=== PATIENT | male | born 1955 | race Caucasian/White ===

== ENCOUNTER 2017-03-28 14:29 | Emergency (ER) | payer OTHER ==
[2017-03-28] MEDS ORDERED: PROMETHAZINE HCL 25 MG TABLET PO ONE (16:22)
[2017-03-28] MEDS ORDERED: OXYCODONE-ACETAMINOPHEN 5-325 MG TABLET PO ONE (16:22)
--- NOTE | 2017-03-28 16:30 | ER Document Report ---
ED Medical Screen (RME) - General Chief Complaint: Abdominal Pain Stated Complaint: ABDOMINAL PAIN Time Seen by Provider: 03/28/17 16:22 Notes: Patient is complaining of pain in the mid epigastric region of his abdomen that and about 5 AM. It was very severe, although it is easing off some now. He feels as if someone had punched him in his abdomen about 40 times. Did not have any vomiting nor diarrhea. Has had decreased bowel movement over the past 24 hours. No fevers. History of a couple of kidney stones in the past. Abdomen is somewhat distended, large, decreased bowel sounds present. No bruits heard. TRAVEL OUTSIDE OF THE [place] IN LAST 30 DAYS: No - Related Data Allergies/Adverse Reactions: No Known Allergies Allergy (Verified 03/28/17 14:43) Past Medical History Renal/ Medical History: Denies: Hx Peritoneal Dialysis Physical Exam - Vital signs Vitals: Temp Pulse Resp BP Pulse Ox 97.8 F 76 22 H 181/85 H 97 03/28/17 14:43 03/28/17 14:43 03/28/17 14:43 03/28/17 14:43 03/28/17 14:43 Course - Vital Signs Vital signs: Temp Pulse Resp BP Pulse Ox 97.8 F 76 22 H 181/85 H 97 03/28/17 14:43 03/28/17 14:43 03/28/17 14:43 03/28/17 14:43 03/28/17 14:43
[2017-03-28 16:50] LABS: ABSOLUTE BASOPHILS # (AUTO) 0.1 10^3/uL (0.0-0.2); ABSOLUTE EOSINOPHILS # (AUTO) 0.3 10^3/uL (0.0-0.6); ABSOLUTE LYMPHOCYTES (AUTO) 1.6 10^3/uL (0.5-4.7); ABSOLUTE MONOCYTES (AUTO) 0.5 10^3/uL (0.1-1.4); ABSOLUTE NEUT (AUTO) 8.4 10^3/uL (1.7-8.2); BASOPHILS % (AUTO) 0.7 % (0-2); EOSINOPHILS % (AUTO) 2.4 % (0-6); HEMATOCRIT 41.8 % (37.9-51.0); HEMOGLOBIN 14.1 g/dL (13.5-17.0); HGB HCT DIFFERENCE 0.5; LYMPHOCYTES % (AUTO) 14.6 % (13-45); MEAN CORPUSCULAR HEMOGLOBIN 29.8 pg (27.0-33.4); MEAN CORPUSCULAR HGB CONC 33.9 g/dL (32.0-36.0); MEAN CORPUSCULAR VOLUME 88 fl (80-97); MONOCYTES % (AUTO) 4.8 % (3-13); RED BLOOD COUNT 4.75 10^6/uL (4.35-5.55); RED CELL DISTRIBUTION WIDTH 13.7 % (11.5-14.0); SEGMENTED NEUTROPHILS % (AUTO) 77.5 % (42-78); WHITE BLOOD COUNT 10.8 10^3/uL (4.0-10.5)
[2017-03-28 17:02] LABS: APPEARANCE,URINE CLEAR; BILIRUBIN,URINE NEGATIVE (NEGATIVE); GLUCOSE, URINE NEGATIVE (NEGATIVE); KETONES,URINE NEGATIVE (NEGATIVE); LEUKOCYTE ESTERASE,URINE NEGATIVE (NEGATIVE); NITRITE,URINE NEGATIVE (NEGATIVE); PROTEIN,URINE 30 mg/dL (NEGATIVE); URINE SPECIFIC GRAVITY 1.019; UROBILINOGEN,URINE NEGATIVE mg/dL (<2.0)
[2017-03-28 17:20] LABS: ALANINE AMINOTRANSFERASE 53 U/L (21-72); ALBUMIN 4.6 g/dL (3.5-5.0); ALKALINE PHOSPHATASE 90 U/L (38-126); ANION GAP 17 (5-19); ASPARTATE AMINO TRANSFERASE 32 U/L (17-59); BILIRUBIN,DIRECT 0.3 mg/dL (0.0-0.4); BILIRUBIN,TOTAL 0.6 mg/dL (0.2-1.3); BLOOD UREA NITROGEN 26 mg/dL (7-20); CALCIUM 10.5 mg/dL (8.4-10.2); CARBON DIOXIDE 25 mmol/L (22-30); CHLORIDE 104 mmol/L (98-107); GLUCOSE 204 mg/dL (75-110); LIPASE 920.7 U/L (23-300); POTASSIUM 5.2 mmol/L (3.6-5.0); SODIUM 146.2 mmol/L (137-145); TOTAL PROTEIN 8.3 g/dL (6.3-8.2)
--- NOTE | 2017-03-28 17:41 | RADIOLOGY REPORT (SQ) ---
EXAM DESCRIPTION: CT ABD/PELVIS NO ORAL OR IV COMPLETED DATE/TIME: 03/28/2017 5:15 pm REASON FOR STUDY: Mid epigastric abdominal pain COMPARISON: None. TECHNIQUE: CT scan of the abdomen and pelvis performed without intravenous or oral contrast. Images reviewed with lung, soft tissue, and bone windows. Reconstructed coronal and sagittal MPR images revi ewed. All images stored on PACS. All CT scanners at this facility use dose modulation, iterative reconstruction, and/or weight based d osing when appropriate to reduce radiation dose to as low as reasonably achievable (ALARA). [facility]: Dose Right [facility]: CareDose [facility]: Dose Right [facility]: Teradose 4D [facility]: [employer] [place] RADIATION DOSE: 19.09mGy. LIMITATIONS: None. FINDINGS: LOWER CHEST: No significant findings. No nodules or infiltrates. NON-CONTRASTED LIVER, SPLEEN, ADRENALS: The liver is low in density. The spleen and adrenal glands a re normal. PANCREAS: There is stranding around the 1st and 2nd portions of the duodenum and the head of the panc reas. GALLBLADDER: No identified stones by CT criteria. No inflammatory changes to suggest cholecystitis. RIGHT KIDNEY AND URETER: No suspicious masses. Assessment limited by lack of IV contrast. No signif icant calcifications. No hydronephrosis or hydroureter. LEFT KIDNEY AND URETER: No suspicious masses. Assessment limited by lack of IV contrast. No signifi cant calcifications. No hydronephrosis or hydroureter. AORTA AND RETROPERITONEUM: No aneurysm. No retroperitoneal masses or adenopathy. BOWEL AND PERITONEAL CAVITY: There is stranding in the fat around the 1st and 2nd portions of the duo denum and the head of the pancreas. APPENDIX: Not identified. PELVIS, BLADDER, AND ABDOMINAL WALL:No abnormal masses. No free fluid. Bladder normal. BONES: No significant findings. OTHER: No other significant finding. IMPRESSION: There is stranding around the 1st and 2nd portions of the duodenum and the head of the p ancreas. No free air is seen in the abdomen. Perforated duodenal ulcer versus pancreatitis. TECHNICAL DOCUMENTATION: JOB ID: [id number] Quality ID # [id number]: Final reports with documentation of one or more dose reduction techniques (e.g., Au tomated exposure control, adjustment of the mA and/or kV according to patient size, use of iterative reconstruction technique) 2010 [employer]- All Rights Reserved
[2017-03-28] MEDS ORDERED: HYDROCODONE/ACETAMINOPHEN 5-325 MG 6 TAB/DSPK PO PRN (17:59)
--- NOTE | 2017-03-28 17:59 | ER Document Report ---
ED GI/ - General Chief Complaint: Abdominal Pain Stated Complaint: ABDOMINAL PAIN Time Seen by Provider: 03/28/17 16:22 Mode of Arrival: Ambulatory Information source: Patient Notes: Pt is a 61 year old male who presents to the ER today for upper abdominal pain that woke him up from sleep this morning at 5am. He denies nausea/vomiting/ diarrhea, fever, chills. He states he's been a little constipated lately, but his last bowel was this morning. He states the pain feels like someone "kicked me 40 times." He denies any history of gallbladder disease, pancreatitis, bowel obstruction, abdominal surgery. TRAVEL OUTSIDE OF THE [place] IN LAST 30 DAYS: No - Related Data Allergies/Adverse Reactions: No Known Allergies Allergy (Verified 03/28/17 14:43) Past Medical History - General Information source: Patient - Social History Smoking Status: Former Smoker Chew tobacco use (# tins/day): No Frequency of alcohol use: None Drug Abuse: None Family History: Reviewed & Not Pertinent Patient has suicidal ideation: No Patient has homicidal ideation: No Renal/ Medical History: Denies: Hx Peritoneal Dialysis - Immunizations Hx Diphtheria, Pertussis, Tetanus Vaccination: Yes Review of Systems - Review of Systems Constitutional: No symptoms reported EENT: No symptoms reported Cardiovascular: No symptoms reported Respiratory: No symptoms reported Gastrointestinal: See HPI Genitourinary: No symptoms reported Male Genitourinary: No symptoms reported Musculoskeletal: No symptoms reported Skin: No symptoms reported Hematologic/Lymphatic: No symptoms reported Neurological/Psychological: No symptoms reported Physical Exam - Vital signs Vitals: Temp Pulse Resp BP Pulse Ox 97.8 F 76 22 H 181/85 H 97 03/28/17 14:43 03/28/17 14:43 03/28/17 14:43 03/28/17 14:43 03/28/17 14:43 - Notes Notes: Patient has PHYSICAL EXAMINATION: GENERAL: Well-appearing, obese, and in no acute distress. HEAD: Atraumatic, normocephalic. EYES: Pupils equal round and reactive to light, extraocular movements intact, sclera anicteric, conjunctiva are normal. NECK: Normal range of motion, supple without lymphadenopathy LUNGS: CTAB and equal. No wheezes rales or rhonchi. HEART: Regular rate and rhythm without murmurs ABDOMEN: Soft, no tenderness. No guarding, no rebound BACK: no vertebral tenderness, normal ROM GI/: no CVA tenderness EXTREMITIES: Normal range of motion, no pitting edema. No cyanosis. NEUROLOGICAL: Cranial nerves grossly intact. Normal sensory/motor exams. PSYCH: Normal mood, normal affect. SKIN: Warm, Dry, normal turgor, no rashes or lesions noted Course - Re-evaluation Re-evalutation: 03/28/17 18:26 Patient had a lipase of 960, CAT scan revealed someStranding around the head of the pancreas, patient has absolutely no or tenderness to exam even with deep palpation, absolutely no nausea or vomiting. He is happy, smiling and very talkative in the room. Patient is stable to be discharged on a clear liquid diet, I did educate him about pancreatitis and the link between alcohol and pancreatitis, the treatment for pancreatitis as clear liquids, pain medication and nausea medication. I did educate him on return precautions. - Vital Signs Vital signs: Temp Pulse Resp BP Pulse Ox 97.8 F 84 18 135/79 H 98 03/28/17 14:43 03/28/17 18:21 03/28/17 18:21 03/28/17 18:21 03/28/17 18:21 - Laboratory Result Diagrams: 03/28/17 16:40 03/28/17 16:40 Laboratory results interpreted by me: 03/28/17 03/28/17 03/28/17 16:40 16:40 16:44 WBC 10.8 H Absolute Neutrophils 8.4 H Sodium 146.2 H Potassium 5.2 H BUN 26 H Glucose 204 H Calcium 10.5 H Total Protein 8.3 H Lipase 920.7 H Urine Protein 30 H Discharge - Discharge Clinical Impression: Pancreatitis Qualifiers: Chronicity: acute Pancreatitis type: unspecified pancreatitis type Acute pancreatitis complication: unspecified Qualified Code(s): K85.90 - Acute pancreatitis without necrosis or infection, unspecified Condition: Stable Disposition: HOME, SELF-CARE Instructions: Pancreatitis ([facility]) Additional Instructions: Drink plenty of fluids! Return immediately for any new or worsening symptoms. Follow up with primary care provider, call tomorrow to make followup appointment. Prescriptions: Hydrocodone/Acetaminophen [[place] 5-325 mg Tablet] 1 - 2 tab PO Q4 PRN #25 tablet PRN Reason: Promethazine HCl [Phenergan 25 mg Tablet] 25 mg PO Q8 PRN #30 tablet PRN Reason:
[2017-03-28 18:22] VITALS: BP 135/79
== END 2017-03-28 18:21 | disposition home or self-care (01) ==
LOC: ER 14:29
DX: K85.90 Acute pancreatitis without necrosis or infection, unspecified (principal); R10.9 Unspecified abdominal pain; Z87.891 Personal history of nicotine dependence
CPT/HCPCS: 36415; 74176; 80053; 81001; 83690; 85025; 99284

== ENCOUNTER 2019-07-06 07:53 | Day surgery (SDC) | payer OTHER ==
[~2019-07-06 07:53] MED LIST: PROPOFOL INJ 200 MG/20 ML VIAL IV ONE
[2019-07-06] MEDS ORDERED: PROPOFOL INJ 200 MG/20 ML VIAL IV ONE (09:23)
[2019-07-06 09:24] VITALS: BP 137/72
--- NOTE | 2019-07-06 13:17 | Operative Report ---
Operative Report DATE OF SURGERY: 07/06/19 Operative Report: The risks, benefits and alternatives of the procedure including the risk of bleeding, perforation requiring surgery have been explained to the patient in detail and informed consent has been obtained. Patient is taken back to the endoscopy suite and placed in a left, lateral decubital position. Timeout was called. Propofol medication is administered. Rectal examination is done which did not reveal any masses, tears or fissures. An Olympus videoscope was introduced into the patient's rectum. The scope was then carefully advanced all the way to the cecum. The cecum was identified by the usual anatomical landmarks of the ileocecal valve as well as the appendiceal office. Photodocumentation is obtained. The scope was then sequentially pulled back via the various segments of the colon including the ascending colon, hepatic flexure, transverse colon, splenic flexure, descending colon finding to the rectosigmoid portions of the colon. Retroflexion maneuvers performed. PREOPERATIVE DIAGNOSIS: Personal history of polyps POSTOPERATIVE DIAGNOSIS: Cecal polyp removed via biopsy forceps. Descending colon removed via snare polypectomy and retrieved. Internal hemorrhoids OPERATION: Colonoscopy with snare polypectomy. Colonoscopy with biopsy SURGEON: SILKE SOTOMAYOR ANESTHESIA: LMAC TISSUE REMOVED OR ALTERED: As noted above. COMPLICATIONS: None. ESTIMATED BLOOD LOSS: None. INTRAOPERATIVE FINDINGS: As noted above. PROCEDURE: Patient tolerated the procedure well. No immediate postprocedure complications are noted. Patient is discharged in good condition. Discharge date 07/06/2019. Discharge diet: Regular. Discharge activity: Regular. 2 to 3-week follow-up to discuss findings. Patient is instructed to call the office or proceed to the emergency room should there be any further problems or questions. Wait on the pathology. 3 to 5-year surveillance colonoscopy.
== END 2019-07-06 09:30 | disposition home or self-care (01) ==
LOC: END 07:53
PROVIDERS: ATTEND Internal Medicine Gastroenterology
DX: Z12.11 Encounter for screening for malignant neoplasm of colon (principal); Z86.010 Personal history of colon polyps; K52.9 Noninfective gastroenteritis and colitis, unspecified; D12.4 Benign neoplasm of descending colon; D12.0 Benign neoplasm of cecum; K64.8 Other hemorrhoids; I10 Essential (primary) hypertension; E66.9 Obesity, unspecified
CPT/HCPCS: 45380; 45385; 82962; 88305 ×2; 00811; J2704; 811

== ENCOUNTER 2019-08-31 11:26 | Observation (INO) | payer OTHER ==
[2019-08-31] MEDS ORDERED: NITROGLYCERIN 0.4 MG/TAB 25 TAB/BOTTLE SL ONE (12:16)
[2019-08-31] MEDS ORDERED: ASPIRIN 81 MG TABLET, CHEWABLE PO ONE (12:16)
--- NOTE | 2019-08-31 12:16 | ER Document Report ---
ED Medical Screen (RME) - General Chief Complaint: Chest Pain Stated Complaint: CHEST PAIN Time Seen by Provider: 08/31/19 12:13 Mode of Arrival: Wheelchair Information source: Patient Notes: 63-year-old male presented to ED for complaint of pain that started as a twinge in his left arm then neck and now it feels like a elephant sitting on his chest. He states this started this morning. States he is a diabetic is on cholesterol medicine. She denies smoking drinking or use of any drugs. He states he is never had any cardiac history. He had a colonoscopy about a month ago for polyps I have greeted and performed a rapid initial assessment of this patient. A comprehensive ED assessment and evaluation of the patient, analysis of test results and completion of medical decision making process will be conducted by an additional ED providers. TRAVEL OUTSIDE OF THE [place] IN LAST 30 DAYS: No - Related Data Allergies/Adverse Reactions: No Known Allergies Allergy (Verified 08/31/19 12:13) Past Medical History - Past Medical History Cardiac Medical History: Reports: Hx Hypertension Denies: Hx Coronary Artery Disease, Hx Heart Attack Pulmonary Medical History: Denies: Hx Asthma, Hx Bronchitis, Hx COPD, Hx Pneumonia Neurological Medical History: Denies: Hx Cerebrovascular Accident, Hx Seizures Renal/ Medical History: Denies: Hx Peritoneal Dialysis Musculoskeltal Medical History: Reports Hx Arthritis - Immunizations Hx Diphtheria, Pertussis, Tetanus Vaccination: Yes Physical Exam - Vital signs Vitals: Temp Pulse Resp BP Pulse Ox 97.8 F 100 19 194/99 H 100 08/31/19 11:37 08/31/19 11:37 08/31/19 11:37 08/31/19 11:37 08/31/19 11:37 Course - Vital Signs Vital signs: Temp Pulse Resp BP Pulse Ox 97.8 F 100 19 194/99 H 100 08/31/19 11:37 08/31/19 11:37 08/31/19 11:37 08/31/19 11:37 08/31/19 11:37
[2019-08-31] MEDS ORDERED: NITROGLYCERIN 0.4 MG/TAB 25 TAB/BOTTLE ONE (12:17)
[2019-08-31] MEDS ORDERED: ASPIRIN 81 MG TABLET, CHEWABLE ONE (12:18)
[2019-08-31 13:12] LABS: ABSOLUTE BASOPHILS # (AUTO) 0.1 10^3/uL (0.0-0.2); ABSOLUTE EOSINOPHILS # (AUTO) 0.7 10^3/uL (0.0-0.6); ABSOLUTE LYMPHOCYTES (AUTO) 1.5 10^3/uL (0.5-4.7); ABSOLUTE MONOCYTES (AUTO) 0.5 10^3/uL (0.1-1.4); ABSOLUTE NEUT (AUTO) 6.1 10^3/uL (1.7-8.2); BASOPHILS % (AUTO) 0.7 % (0-2); HEMATOCRIT 40.4 % (37.9-51.0); HEMOGLOBIN 13.7 g/dL (13.5-17.0); LYMPHOCYTES % (AUTO) 16.5 % (13-45); MEAN CORPUSCULAR HEMOGLOBIN 29.1 pg (27.0-33.4); MEAN CORPUSCULAR HGB CONC 33.9 g/dL (32.0-36.0); MEAN CORPUSCULAR VOLUME 86 fl (80-97); MONOCYTES % (AUTO) 6.1 % (3-13); PLATELET COUNT 216 10^3/uL (150-450); RED BLOOD COUNT 4.71 10^6/uL (4.35-5.55); RED CELL DISTRIBUTION WIDTH 13.4 % (11.5-14.0); SEGMENTED NEUTROPHILS % (AUTO) 68.7 % (42-78); TOTAL CELLS COUNTED % (AUTO) 100 %; WHITE BLOOD COUNT 8.9 10^3/uL (4.0-10.5)
[2019-08-31 13:14] LABS: INTERNATIONAL RATION (INR) 0.91; PROTHROMBIN TIME 12.2 SEC (11.4-15.4)
[2019-08-31 13:15] LABS: PARTIAL THROMBOPLASTIN TIME 24.4 SEC (23.5-35.8)
[2019-08-31 13:27] LABS: ALBUMIN 4.1 g/dL (3.5-5.0); ALKALINE PHOSPHATASE 133 U/L (38-126); ANION GAP 10 (5-19); ASPARTATE AMINO TRANSFERASE 48 U/L (17-59); BILIRUBIN,DIRECT 0.1 mg/dL (0.0-0.4); BILIRUBIN,TOTAL 0.6 mg/dL (0.2-1.3); BLOOD UREA NITROGEN 21 mg/dL (7-20); CALCIUM 9.3 mg/dL (8.4-10.2); CARBON DIOXIDE 25 mmol/L (22-30); CHLORIDE 100 mmol/L (98-107); CREATINE KINASE 171 U/L (55-170); POTASSIUM 4.7 mmol/L (3.6-5.0)
--- NOTE | 2019-08-31 13:28 | ER Document Report ---
ED Cardiac - General Chief Complaint: Chest Pain Stated Complaint: CHEST PAIN Time Seen by Provider: 08/31/19 12:13 Mode of Arrival: Ambulatory Information source: Patient TRAVEL OUTSIDE OF THE [place] IN LAST 30 DAYS: No - HPI Patient complains to provider of: Chest pain Was the onset of pain: Gradual Chest pain location: Substernal Quality of pain: None Notes: Patient states that this morning he developed a pain in his left shoulder which then spread to his neck and upper left back as well as to his chest. He states it was mainly a pressure sensation. It was moderate to severe in intensity. It did wax and wane. Nothing made it better or worse except that when he got here he received nitroglycerin and 4 aspirin and he thinks this may have made it slightly better. He states that now over time it is gradually gone down to where the pain is minor and he just has some "soreness". In his back and shoulder. He denies any known injuries to this area. He has had no upper respiratory symptoms. He states he has had pleurisy in the past and this felt similar but today's pain was more intense. He states he never had any cardiac problems such as heart attacks or heart failure. He states he has a primary doctor at the [facility]. He states his last stress test was 10 years ago. He states that he has some shortness of breath with this pain but this is now better. He denies any nausea or sweating with the pain. The pain radiated from the shoulder to his left chest. - Related Data Allergies/Adverse Reactions: No Known Allergies Allergy (Verified 08/31/19 12:13) Home Medications: CHOLESTEROL. DM Past Medical History - General Information source: Patient - Social History Smoking Status: Former Smoker Chew tobacco use (# tins/day): No Frequency of alcohol use: None Drug Abuse: None Family History: Reviewed & Not Pertinent Patient has suicidal ideation: No Patient has homicidal ideation: No - Past Medical History Cardiac Medical History: Reports: Hx Hypertension Denies: Hx Coronary Artery Disease, Hx Heart Attack Pulmonary Medical History: Denies: Hx Asthma, Hx Bronchitis, Hx COPD, Hx Pneumonia Neurological Medical History: Denies: Hx Cerebrovascular Accident, Hx Seizures Renal/ Medical History: Denies: Hx Peritoneal Dialysis Musculoskeletal Medical History: Reports Hx Arthritis - Immunizations Hx Diphtheria, Pertussis, Tetanus Vaccination: Yes Review of Systems - Review of Systems Constitutional: denies: Chills, Fever Cardiovascular: Chest pain. denies: Palpitations Respiratory: Short of breath. denies: Cough Gastrointestinal: denies: Diarrhea, Vomiting -: Yes All other systems reviewed and negative Physical Exam - Vital signs Vitals: Temp Pulse Resp BP Pulse Ox 97.8 F 100 19 194/99 H 100 08/31/19 11:37 08/31/19 11:37 08/31/19 11:37 08/31/19 11:37 08/31/19 11:37 Interpretation: Hypertensive - General General appearance: Appears well, Alert In distress: None - HEENT Head: Normocephalic, Atraumatic Eyes: Normal Pupils: PERRL - Respiratory Respiratory status: No respiratory distress Chest status: Nontender Breath sounds: Normal Chest palpation: Normal - Cardiovascular Rhythm: Regular Heart sounds: Normal auscultation Murmur: No - Abdominal Inspection: Normal Distension: No distension Bowel sounds: Normal Tenderness: Nontender Organomegaly: No organomegaly - Back Back: Normal, Nontender - Extremities General upper extremity: Normal inspection, Nontender, Normal color, Normal ROM, Normal temperature General lower extremity: Normal inspection, Nontender, Normal color, Normal ROM, Normal temperature, Normal weight bearing. No: Jessica's sign - Neurological Neuro grossly intact: Yes Cognition: Normal Orientation: AAOx4 [place] Coma Scale Eye Opening: Spontaneous Milly Coma Scale Verbal: Oriented [place] Coma Scale Motor: Obeys Commands [place] Coma Scale Total: 15 Speech: Normal Motor strength normal: LUE, RUE, LLE, RLE Sensory: Normal - Psychological Associated symptoms: Normal affect, Normal mood - Skin Skin Temperature: Warm Skin Moisture: Dry Skin Color: Normal Course - Re-evaluation Re-evalutation: 08/31/19 14:13 Patient comes in complaining of chest pain that started this morning. He states it is now essentially better except for some "soreness". Patient has a heart score of 4. He has had no significant cardiac evaluation in 10 years. He does have significant risk factors that include diabetes, uncontrolled hypertension, age, obesity, and no recent evaluation. - Vital Signs Vital signs: Temp Pulse Resp BP Pulse Ox 97.8 F 104 H 19 126/84 H 100 08/31/19 11:37 08/31/19 12:33 08/31/19 11:37 08/31/19 12:33 08/31/19 11:37 - Laboratory Result Diagrams: 08/31/19 12:54 08/31/19 12:54 Laboratory results interpreted by me: 08/31/19 08/31/19 12:54 12:54 Eos % (Auto) 8.0 H Absolute Eos (auto) 0.7 H Sodium 134.9 L BUN 21 H Glucose 424 H* Magnesium 1.4 L Alkaline Phosphatase 133 H Creatine Kinase 171 H - Diagnostic Test Radiology reviewed: Image reviewed, Reports reviewed - EKG Interpretation by Me EKG shows normal: Sinus rhythm Rate: Tachycardia - 104 Rhythm: NSR [place]/QRS: No: Right axis deviation, Left axis deviation Discharge - Discharge Clinical Impression: Chest pain Qualifiers: Chest pain type: unspecified Qualified Code(s): R07.9 - Chest pain, unspecified Condition: Stable Disposition: ADMITTED INPATIENT Admitting Provider: Iraida (Hospitalist) - don zabrina doing orders Unit Admitted: Telemetry
[2019-08-31 13:39] LABS: CREATINE KINASE MB 2.47 ng/mL (<4.55); NT PRO BNP 64 pg/mL (<125)
[2019-08-31 13:40] LABS: GLUCOSE 424 mg/dL (75-110); TROPONIN I < 0.012 ng/mL
--- NOTE | 2019-08-31 14:10 | RADIOLOGY REPORT (SQ) ---
EXAM DESCRIPTION: CHEST 2 VIEWS COMPLETED DATE/TIME: 08/31/2019 1:37 pm REASON FOR STUDY: cp.sob COMPARISON: None. NUMBER OF VIEWS: Two view. TECHNIQUE: Frontal and lateral radiographic views of the chest acquired. LIMITATIONS: None. FINDINGS: LUNGS AND PLEURA: No opacities, masses or pneumothorax. No pleural effusion. MEDIASTINUM AND HILAR STRUCTURES: No masses. No contour abnormalities. HEART AND VASCULAR STRUCTURES: Heart enlarged without failure. Aorta normal for age. BONES: No acute findings. HARDWARE: None in the chest. OTHER: No other significant finding. IMPRESSION: CARDIAC ENLARGEMENT WITHOUT FAILURE. TECHNICAL DOCUMENTATION: JOB ID: [id number] [employer]- All Rights Reserved Reading location - IP/workstation name: [email or web address]
[2019-08-31] MEDS ORDERED: NORMAL SALINE 1000 ML 1,000 ML IV ONE (14:28)
[2019-08-31] MEDS ORDERED: INSULIN REG, HUMAN 100 UNIT/ML 3 ML VIAL (PYX) IV ONE (14:29)
[2019-08-31] MEDS ORDERED: ZOLPIDEM TARTRATE 5 MG TABLET PO PRN (14:49)
[2019-08-31] MEDS ORDERED: ONDANSETRON HCL INJ/PF 4 MG/2 ML SDV IV PRN (14:49)
[2019-08-31] MEDS ORDERED: NORMAL SALINE 1000 ML 1,000 ML IV PRN (14:49)
[2019-08-31] MEDS ORDERED: ACETAMINOPHEN 325 MG TABLET PO PRN (14:49)
[2019-08-31] MEDS ORDERED: MAGNESIUM HYDROXIDE SUSP 30 ML UDCUP PO PRN (14:49)
[2019-08-31] MEDS ORDERED: ONDANSETRON 4 MG TAB.RAPDIS PO PRN (14:49)
[2019-08-31] MEDS ORDERED: DEXTROSE 50%-WATER 25 GM/50 ML DISP.SYRIN IV PRN ×2 (14:59)
[2019-08-31] MEDS ORDERED: GLUCAGON,HUMAN RECOMB 1 MG INJ IM PRN (14:59)
[2019-08-31] MEDS ORDERED: DEXTROSE 40% GEL 15 GM TUBE PO PRN ×2 (14:59)
[2019-08-31] MEDS ORDERED: HYDRALAZINE HCL INJ/PF 20 MG/1 ML SDV IV PRN (15:02)
[2019-08-31] MEDS ORDERED: NITROGLYCERIN 0.4 MG/TAB 25 TAB/BOTTLE SL PRN (15:15)
--- NOTE | 2019-08-31 15:15 | PDOC H&P ---
History of Present Illness Admission Date/PCP: 08/31/19 14:38 [facility] History of Present Illness: SE MONDRAGON is a 63 year old male who this morning around 0 930 started getting pain in the left arm. Patient states that over appeared of an hour went up into the neck on the left side and into the left side of his chest. Patient states that about 10 years ago he had something similar and was sent to [facility] for a stress test. Since then however he has been chest pain-free. Patient states that there was no nausea no vomiting with his chest pain this morning. His other medical problems include diabetes where he is on insulin, 3 months ago he was put on a statin by the [facility]. He also states he has had hypertension for many years. Patient states he wants to be a DNR. Patient's regular provider is the [facility] and he has no regular braille translator. Past Medical History Cardiac Medical History: Reports: Hyperlipidema, Hypertension Denies: Coronary Artery Disease, Myocardial Infarction Pulmonary Medical History: Denies: Asthma, Bronchitis, Chronic Obstructive Pulmonary Disease (COPD), Pneumonia Neurological Medical History: Denies: Seizures Endocrine Medical History: Reports: Diabetes Mellitus Type 2 Musculoskeltal Medical History: Reports: Arthritis, Gout Psychiatric Medical History: Reports: None Hematology: Denies: Anemia Social History Smoking Status: Former Smoker Electronic Cigarette use?: No - Advance Directive Resuscitation Status: Do Not Resuscitate Family History Family History: Reviewed & Not Pertinent Parental Family History Reviewed: No Children Family History Reviewed: No Sibling(s) Family History Reviewed.: No Medication/Allergy Home Medications: Allopurinol [Zyloprim] 300 mg PO DAILY 07/06/19 Amlodipine Besylate [Norvasc 10 mg Tablet] 10 mg PO DAILY 07/06/19 Insulin Aspart [Novolog Flexpen] 30 unit SQ 07/06/19 Insulin Glargine,Hum.rec.anlog [Lantus (Pyxis) Insulin 100 Unit/1 ml 10 ml] 70 unit SUBCUT BID 07/06/19 Omeprazole 20 mg PO DAILY 07/06/19 Rosuvastatin Calcium [Crestor 20 mg Tablet] 20 mg PO DAILY 07/06/19 Terazosin HCl [Hytrin] 2 mg PO QHS 07/06/19 Allergies/Adverse Reactions: No Known Allergies Allergy (Verified 08/31/19 12:13) Review of Systems Constitutional: ABSENT: chills, fever(s), headache(s), weight gain, weight loss Cardiovascular: ABSENT: chest pain, dyspnea on exertion, edema, orthropnea, palpitations Respiratory: ABSENT: cough, hemoptysis Neurological: ABSENT: abnormal gait, abnormal speech, confusion, dizziness, focal weakness, syncope Psychiatric: ABSENT: anxiety, depression, homidical ideation, suicidal ideation Physical Exam Vital Signs: Temp Pulse Resp BP Pulse Ox 97.8 F 104 H 19 126/84 H 100 08/31/19 11:37 08/31/19 12:33 08/31/19 11:37 08/31/19 12:33 08/31/19 11:37 Intake & Output 08/30/19 08/31/19 09/01/19 06:59 06:59 06:59 Weight 151.3 kg Results Laboratory Results: 08/31/19 12:54 08/31/19 12:54 08/31/19 08/31/19 08/31/19 12:54 12:54 12:54 WBC 8.9 RBC 4.71 Hgb 13.7 Hct 40.4 MCV 86 MCH 29.1 MCHC 33.9 RDW 13.4 Plt Count 216 Seg Neutrophils % 68.7 Sodium 134.9 L Potassium 4.7 Chloride 100 Carbon Dioxide 25 Anion Gap 10 BUN 21 H Creatinine 1.13 Est GFR ( Amer) > 60 Glucose 424 H* Calcium 9.3 Magnesium 1.4 L Total Bilirubin 0.6 AST 48 Alkaline Phosphatase 133 H Total Protein 7.0 Albumin 4.1 TSH 2.86 08/31/19 08/31/19 12:54 12:54 Creatine Kinase 171 H CK-MB (CK-2) 2.47 Troponin I < 0.012 NT-Pro-B Natriuret Pep 64 Impressions: Chest X-Ray 08/31/19 13:21 IMPRESSION: CARDIAC ENLARGEMENT WITHOUT FAILURE. Assessment and Plan - Diagnosis (1) HTN (hypertension) Is this a current diagnosis for this admission?: Yes (2) Gout Is this a current diagnosis for this admission?: Yes (3) Diabetes Is this a current diagnosis for this admission?: Yes (4) Chest pain Qualifiers: Chest pain type: unspecified Qualified Code(s): R07.9 - Chest pain, unspecified Is this a current diagnosis for this admission?: Yes - Plan Summary Summary: Patient will be admitted as observation status for cardiology consult and further troponins, blood pressure control and diabetes control - Time Time Spent with patient: 35 or more minutes
[2019-08-31] MEDS: METOPROLOL SUCCINATE 25 MG TAB.SR.24H PO SCH ×2 (15:52→21:44)
[2019-08-31] MEDS: ENOXAPARIN SODIUM INJ 40 MG/0.4 ML DISP.SYRIN SUBCUT SCH (15:52)
[2019-08-31 16:05] LABS: APPEARANCE,URINE CLEAR; BILIRUBIN,URINE NEGATIVE (NEGATIVE); COLOR,URINE STRAW; GLUCOSE, URINE >=500 mg/dL (NEGATIVE); KETONES,URINE NEGATIVE (NEGATIVE); LEUKOCYTE ESTERASE,URINE NEGATIVE (NEGATIVE); NITRITE,URINE NEGATIVE (NEGATIVE); PROTEIN,URINE NEGATIVE (NEGATIVE); URINE SPECIFIC GRAVITY 1.026; UROBILINOGEN,URINE NEGATIVE mg/dL (<2.0)
[2019-08-31 16:20] LABS: CREATINE KINASE MB 1.61 ng/mL (<4.55)
[2019-08-31 16:29] LABS: TROPONIN I < 0.012 ng/mL
[2019-08-31] MEDS: INSULIN LISPRO 100 UNIT/ML 3 ML VIAL SUBCUT SCH ×2 (18:33→21:43)
[2019-08-31 20:58] LABS: CREATINE KINASE MB 1.17 ng/mL (<4.55)
[2019-08-31 20:59] LABS: TROPONIN I < 0.012 ng/mL
[2019-08-31] MEDS: INSULIN GLARGINE,HUM.REC.ANLOG 1,000 UNIT/10 ML VIAL SUBCUT SCH (21:44)
[2019-08-31] MEDS: FAMOTIDINE 20 MG TABLET PO SCH (21:44)
[2019-08-31] MEDS ORDERED: AMLODIPINE BESYLATE 10 MG TABLET PO SCH (22:00)
[2019-08-31] MEDS ORDERED: ATORVASTATIN CALCIUM 20 MG TABLET PO SCH (22:00)
[2019-09-01 03:17] LABS: CREATINE KINASE MB 1.04 ng/mL (<4.55)
[2019-09-01 03:20] LABS: TROPONIN I < 0.012 ng/mL
[2019-09-01] MEDS: INSULIN LISPRO 100 UNIT/ML 3 ML VIAL SUBCUT SCH ×2 (07:54→11:46)
--- NOTE | 2019-09-01 09:41 | EKG REPORT ---
SEVERITY:- ABNORMAL ECG - ATRIAL FIBRILLATION VS PROBABLE SINUS, REC REPEAT EKG LOW VOLTAGE IN FRONTAL LEADS : Confirmed by: Marlon Sue 01-Sep-2019 09:40:27
--- NOTE | 2019-09-01 09:41 | EKG REPORT ---
SEVERITY:- BORDERLINE ECG - SINUS TACHYCARDIA BORDERLINE T ABNORMALITIES, INFERIOR LEADS : Confirmed by: Marlon Sue 01-Sep-2019 09:40:38
[2019-09-01] MEDS: METOPROLOL SUCCINATE 25 MG TAB.SR.24H PO SCH (09:58)
[2019-09-01] MEDS: INSULIN GLARGINE,HUM.REC.ANLOG 1,000 UNIT/10 ML VIAL SUBCUT SCH (09:59)
[2019-09-01] MEDS: FAMOTIDINE 20 MG TABLET PO SCH (09:59)
[2019-09-01] MEDS ORDERED: DOCUSATE SODIUM 100 MG CAPSULE PO SCH (10:00)
[2019-09-01] MEDS: ENOXAPARIN SODIUM INJ 40 MG/0.4 ML DISP.SYRIN SUBCUT SCH (10:00)
[2019-09-01] MEDS ORDERED: MAGNESIUM OXIDE 400 MG TABLET PO SCH (10:00)
[2019-09-01] MEDS ORDERED: ALLOPURINOL 300 MG TABLET PO SCH (10:00)
[2019-09-01 12:29] VITALS: BP 134/86
--- NOTE | 2019-09-01 13:11 | PDOC DISCHARGE SUMMARY ---
Impression - Admit/DC Date/PCP Admission Date/Primary Care Provider: 08/31/19 14:38 [facility] Discharge Date: 09/01/19 - Discharge Diagnosis (2) Chest pain Is this a current diagnosis for this admission?: Yes (3) Gout Is this a current diagnosis for this admission?: Yes (4) HTN (hypertension) Is this a current diagnosis for this admission?: Yes - Assessment Summary: Patient was admitted on the observation for acute onset chest pain which was initially described as chest pressure about 5 out of 10 with involvement of his left neck and left arm. There was initial concern for ACS however all 3 troponin measurements came back negative, chest x-ray was normal, EKG showed no new ischemic changes and patient's chest pain later resolved. Patient requested to go home because he has urgent matters to deal with today but gave his assurance that he will follow-up with his primary care doctor at [facility] to schedule a referral for cardiology evaluation outpatient and possible stress test. Patient was instructed on symptoms to look out for. During patient stay he is blood sugar was slightly elevated in the 200s. He was given his Lantus. Patient was instructed to resume his NovoLog before meals and to follow-up with his primary care doctor for further management of his diabetes. - Additional Information Resuscitation Status: Do Not Resuscitate Discharge Diet: Diabetic Discharge Activity: Activity As Tolerated Referrals: [facility] [Primary [facility]] - (Please call to make an appointment within 1 week and to schedule an evaluation by a assembly loader and possible stress test) Home Medications: Allopurinol [Zyloprim 300 mg Tablet] 300 mg PO DAILY 08/31/19 Amlodipine Besylate [Norvasc 10 mg Tablet] 10 mg PO DAILY 08/31/19 Insulin Aspart [Novolog] 30 unit SQ AC 08/31/19 Insulin Glargine,Hum.rec.anlog [Lantus Insulin 100 Unit/1 ml 10 ml] 70 unit SUBCUT Q12 08/31/19 Omeprazole 20 mg PO DAILY 09/01/19 Rosuvastatin Calcium [Crestor 20 mg Tablet] 10 mg PO QHS 09/01/19 Terazosin HCl 2 mg PO QHS 09/01/19 History of Present Illiness History of Present Illness: SE MONDRAGON is a 63 year old male who this morning around 0 930 started getting pain in the left arm. Patient states that over appeared of an hour went up into the neck on the left side and into the left side of his chest. Patient states that about 10 years ago he had something similar and was sent to [facility] for a stress test. Since then however he has been chest pain-free. Patient states that there was no nausea no vomiting with his chest pain this morning. His other medical problems include diabetes where he is on insulin, 3 months ago he was put on a statin by the [facility]. He also states he has had hypertension for many years. Patient states he wants to be a DNR. 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 Physical Exam Vital Signs: Temp Pulse Resp BP Pulse Ox 98.3 F 62 19 134/86 H 99 09/01/19 12:20 09/01/19 12:20 09/01/19 12:20 09/01/19 12:20 09/01/19 12:20 Intake & Output 08/31/19 09/01/19 09/02/19 06:59 06:59 06:59 Intake Total 1000 240 Balance 1000 240 Weight 152.4 kg General appearance: PRESENT: no acute distress, cooperative, obese. ABSENT: disheveled Eye exam: PRESENT: EOMI Mouth exam: PRESENT: moist Neck exam: ABSENT: JVD, tracheal deviation Respiratory exam: PRESENT: clear to auscultation [place]a, unlabored. ABSENT: chest wall tenderness, rhonchi, wheezes Cardiovascular exam: PRESENT: RRR, +S1, +S2. ABSENT: gallop, irregular rhythm, systolic murmur, tachycardia GI/Abdominal exam: PRESENT: normal bowel sounds, soft. ABSENT: distended, firm, guarding, tenderness Rectal exam: PRESENT: deferred Neurological exam: PRESENT: alert, awake, oriented to person, oriented to place, oriented to time, oriented to situation Psychiatric exam: ABSENT: agitated Results Laboratory Results: WBC 8.9 10^3/uL (4.0-10.5) 08/31/19 12:54 RBC 4.71 10^6/uL (4.35-5.55) 08/31/19 12:54 Hgb 13.7 g/dL (13.5-17.0) 08/31/19 12:54 Hct 40.4 % (37.9-51.0) 08/31/19 12:54 MCV 86 fl (80-97) 08/31/19 12:54 MCH 29.1 pg (27.0-33.4) 08/31/19 12:54 MCHC 33.9 g/dL (32.0-36.0) 08/31/19 12:54 RDW 13.4 % (11.5-14.0) 08/31/19 12:54 Plt Count 216 10^3/uL (150-450) 08/31/19 12:54 Lymph % (Auto) 16.5 % (13-45) 08/31/19 12:54 [place] % (Auto) 6.1 % (3-13) 08/31/19 12:54 Eos % (Auto) 8.0 % (0-6) H 08/31/19 12:54 Baso % (Auto) 0.7 % (0-2) 08/31/19 12:54 Absolute Neuts (auto) 6.1 10^3/uL (1.7-8.2) 08/31/19 12:54 Absolute Lymphs (auto) 1.5 10^3/uL (0.5-4.7) 08/31/19 12:54 Absolute Monos (auto) 0.5 10^3/uL (0.1-1.4) 08/31/19 12:54 Absolute Eos (auto) 0.7 10^3/uL (0.0-0.6) H 08/31/19 12:54 Absolute Basos (auto) 0.1 10^3/uL (0.0-0.2) 08/31/19 12:54 Seg Neutrophils % 68.7 % (42-78) 08/31/19 12:54 PT 12.2 SEC (11.4-15.4) 08/31/19 12:54 INR 0.91 08/31/19 12:54 APTT 24.4 SEC (23.5-35.8) 08/31/19 12:54 Sodium 134.9 mmol/L (137-145) L 08/31/19 12:54 Potassium 4.7 mmol/L (3.6-5.0) 08/31/19 12:54 Chloride 100 mmol/L (98-107) 08/31/19 12:54 Carbon Dioxide 25 mmol/L (22-30) 08/31/19 12:54 Anion Gap 10 (5-19) 08/31/19 12:54 BUN 21 mg/dL (7-20) H 08/31/19 12:54 Creatinine 1.13 mg/dL (0.52-1.25) 08/31/19 12:54 Est GFR ( Amer) > 60 (>60) 08/31/19 12:54 Est GFR (MDRD) Non-Af > 60 (>60) 08/31/19 12:54 Glucose 424 mg/dL (75-110) H* 08/31/19 12:54 POC Glucose 281 mg/dL (70-110) H 09/01/19 10:59 Hemoglobin A1c % 11.8 % (4.7-6.0) H 08/31/19 12:54 Calcium 9.3 mg/dL (8.4-10.2) 08/31/19 12:54 Magnesium 1.3 mg/dL (1.6-2.3) L 09/01/19 02:18 Total Bilirubin 0.6 mg/dL (0.2-1.3) 08/31/19 12:54 Direct Bilirubin 0.1 mg/dL (0.0-0.4) 08/31/19 12:54 Neonat Total Bilirubin Not Reportable 08/31/19 12:54 Neonat Direct Bilirubin Not Reportable 08/31/19 12:54 Neonat Indirect Bili Not Reportable 08/31/19 12:54 AST 48 U/L (17-59) 08/31/19 12:54 ALT 54 U/L (<50) 08/31/19 12:54 Alkaline Phosphatase 133 U/L (38-126) H 08/31/19 12:54 Creatine Kinase 171 U/L (55-170) H 08/31/19 12:54 CK-MB (CK-2) 1.04 ng/mL (<4.55) 09/01/19 02:18 Troponin I < 0.012 ng/mL 09/01/19 02:18 NT-Pro-B Natriuret Pep 64 pg/mL (<125) 08/31/19 12:54 Total Protein 7.0 g/dL (6.3-8.2) 08/31/19 12:54 Albumin 4.1 g/dL (3.5-5.0) 08/31/19 12:54 TSH 2.86 uIU/mL (0.47-4.68) 08/31/19 12:54 Urine Color STRAW 08/31/19 12:54 Urine Appearance CLEAR 08/31/19 12:54 Urine pH 5.0 (5.0-9.0) 08/31/19 12:54 Ur Specific [place] 1.026 08/31/19 12:54 Urine Protein NEGATIVE mg/dL (NEGATIVE) 08/31/19 12:54 Urine Glucose (UA) >=500 mg/dL (NEGATIVE) H 08/31/19 12:54 Urine Ketones NEGATIVE mg/dL (NEGATIVE) 08/31/19 12:54 Urine Blood NEGATIVE (NEGATIVE) 08/31/19 12:54 Urine Nitrite NEGATIVE (NEGATIVE) 08/31/19 12:54 Urine Bilirubin NEGATIVE (NEGATIVE) 08/31/19 12:54 Urine Urobilinogen NEGATIVE mg/dL (<2.0) 08/31/19 12:54 Ur Leukocyte Esterase NEGATIVE (NEGATIVE) 08/31/19 12:54 Urine WBC (Auto) 0 /HPF 08/31/19 12:54 Urine RBC (Auto) 0 /HPF 08/31/19 12:54 Urine Bacteria (Auto) TRACE /HPF 08/31/19 12:54 Squamous Epi Cells Auto <1 /HPF 08/31/19 12:54 Urine Ascorbic Acid NEGATIVE (NEGATIVE) 08/31/19 12:54 08/31/19 08/31/19 08/31/19 12:54 15:26 20:14 CK-MB (CK-2) 2.47 1.61 1.17 Troponin I < 0.012 < 0.012 < 0.012 NT-Pro-B Natriuret Pep 64 09/01/19 02:18 CK-MB (CK-2) 1.04 Troponin I < 0.012 NT-Pro-B Natriuret Pep Impressions: Chest X-Ray 08/31/19 13:21 IMPRESSION: CARDIAC ENLARGEMENT WITHOUT FAILURE. Stroke Is this a Stroke Patient?: No Acute Heart Failure - Is this a Heart Failure Patient?: No
[2019-09-01] MEDS ORDERED: NYSTATIN TOPICAL POWDER 15 GM TP SCH (14:00)
== END 2019-09-01 13:39 | disposition home or self-care (01) ==
LOC: ER 11:26 → INTOOBSV 14:38 → EH 14:38 → 4N 18:55
PROVIDERS: ADMIT Hospitalist; ATTEND Hospitalist
DX: E11.65 Type 2 diabetes mellitus with hyperglycemia (principal); R07.89 Other chest pain; M10.9 Gout, unspecified; I10 Essential (primary) hypertension; M79.602 Pain in left arm; M25.512 Pain in left shoulder; E66.9 Obesity, unspecified; E78.5 Hyperlipidemia, unspecified; M19.90 Unspecified osteoarthritis, unspecified site; R06.02 Shortness of breath; R00.0 Tachycardia, unspecified; Z66 Do not resuscitate; Z79.899 Other long term (current) drug therapy; Z87.891 Personal history of nicotine dependence
CPT/HCPCS: 93005 ×2; 99285; 36415 ×2; 82553 ×2; 82962 ×2; 82550; 83735 ×2; 84443; 85025; 85610; 85730; 80053; 81001; 84484 ×2; 83036; 83880; 71046; 93010 ×2; G0378 ×3; J1815 ×5; J1650 ×2; J7030; J3490